=== PATIENT | female | born 1960 | race Caucasian/White ===

== ENCOUNTER 2017-09-24 19:59 | Emergency (ER) | payer BC ==
[~2017-09-24] VITALS: Ht 162.6 cm; Wt 77.1 kg
[~2017-09-24 19:59] MED LIST: SULF1TAB47; TERB250T35
[2017-09-24 20:05] VITALS: BP_SYST 174
[2017-09-24 21:40] VITALS: BP_SYST 170
== END 2017-09-24 21:40 | disposition home or self-care (01) ==
LOC: SED 19:59
DX: S60.221A Contusion of right hand, initial encounter (principal); M25.561 Pain in right knee; M25.572 Pain in left ankle and joints of left foot; Z88.0 Allergy status to penicillin; W01.0XXA Fall on same level from slipping, tripping and stumbling without subsequent striking against object, initial encounter; Y93.H2 Activity, gardening and landscaping; Y92.89 Other specified places as the place of occurrence of the external cause; Y99.8 Other external cause status
CPT/HCPCS: 99284